=== PATIENT | male | born 1960 | race Caucasian/White ===

== ENCOUNTER 2019-05-14 21:03 | Inpatient (IN) | payer OTHER ==
[~2019-05-14] VITALS: Ht 165.1 cm; Wt 63.5 kg
[2019-05-14 23:15] VITALS: BP 141/80
--- NOTE | 2019-05-14 23:15 | NUR ---
MS/RN NOTES: NEW ADMISSION DIRECT ADMIT PATIENT CAME FROM [facility]. PATIENT IS A 58 YEAR OLD HOMELESS MAN , AMBULATORY, ALERT, ORIENTED X3, ABLE TO VERBALIZE NEEDS, RESPIRATIONS EVEN AND UNLABORED,WAS ADMITTED FOR WEAKNESS HX OF NECK CANCER. ADMITTED DUE TO GENERALIZED WEAKNESS, HYPONATREMIA AND USES METAMPHETAMINE AND BENZO. REPORTED HAD BM TODAY, BELONGINGS CHECK AND REFUSE SKIN CHECK. MD BURNS ADMITTING VITAL SIGNS CHECK,LEFT IV AC GAUGE, 20. NO REPORTED HOME MEDICATIONS. WILL FOLLOW UP WITH ,
[2019-05-14 23:30] VITALS: BP 141/80
[2019-05-15] MEDS ORDERED: ONDANSETRON HCL/PF 4 MG/2 ML VIAL IVP PRN (00:30)
[2019-05-15] MEDS ORDERED: IV NS 0.9% 1,000 ML IV PRN (00:30)
[2019-05-15] MEDS ORDERED: HYDROCODONE/APAP 5/325MG 1 EACH TABLET PO PRN (00:30)
[2019-05-15] MEDS ORDERED: Z GUARD REMEDY 2 OZ OINT TP PRN (00:30)
[2019-05-15] MEDS ORDERED: ACETAMINOPHEN 325 MG TABLET PO PRN (00:30)
[2019-05-15] MEDS ORDERED: ZOLPIDEM TARTRATE 5 MG TABLET PO PRN (00:30)
[2019-05-15] MEDS: IV NS 0.9% 1,000 ML IV PRN ×3 (01:33→20:56)
[2019-05-15] MEDS ORDERED: ENOXAPARIN SODIUM 30 MG/0.3 ML DISP.SYRIN SQ ONE (02:00)
--- NOTE | 2019-05-15 06:36 | NUR ---
320-2MS/RN NOTES PATIENT ABLE TO SLEEP FOR FEW HOURS, RESPIRATIONS EVEN AND UNLABORED. IV FLUIDS INFUSING ON LEFT AC. PATIENT INSTRUCTED TO CALL FORASSISTANCE. BED LOCKED, SAMMI LIGHTS PLACE. PROVIDED SNACKS AND FLUIDS. WILL ENDORSE TO AM RN FOR ELZBIETA.
[2019-05-15 06:46] LABS: CALCIUM, SERUM 8.1 mg/dL (8.5-10.1); CREATININE 1.1 mg/dL (0.6-1.3); MAGNESIUM 2.8 mg/dL (1.8-2.4); PHOSPHORUS 2.2 mg/dL (2.5-4.9); POTASSIUM 3.4 mmol/L (3.5-5.1)
[2019-05-15 06:58] LABS: BASOPHILS % (AUTO) 0.4 % (0.0-2.0); EOSINOPHILS % (AUTO) 0.6 % (0.0-6.0); HEMATOCRIT 40 % (39-51); HEMOGLOBIN 14.1 g/dL (13.5-17.5); LYMPHOCYTES # (AUTO) 2.1 /CMM (0.8-4.8); LYMPHOCYTES % (AUTO) 25.3 % (20.0-44.0); MEAN CORPUSCULAR HGB CONC 35 g/dl (31.0-36.0); MEAN CORPUSCULAR VOLUME 88 fL (80-96); MONOCYTES # (AUTO) 0.7 /CMM (0.1-1.30); MONOCYTES % (AUTO) 8.5 % (2.0-12.0); NEUTROPHILS # (AUTO) 5.5 /CMM (1.8-8.9); NEUTROPHILS % (AUTO) 65.2 % (43.0-81.0); PLATELET COUNT (AUTO) 176 /CMM (150-450); RED BLOOD CELL COUNT(AUTO) 4.58 MIL/uL (4.5-6.0); WHITE BLOOD COUNT (AUTO) 8.4 K/uL (4.3-11.0)
--- NOTE | 2019-05-15 07:08 | NUR ---
RN MS OPENING NOTES RECEIVED PT AWAKE IN BED IN NO ACUTE SIGNS OF DISTRESS. A/O X4. ABLE TO MAKE NEEDS KNOWN, DENIES PAIN OR ANY DISCOMFORTS AT THIS TIME. ON ROOM AIR, BREATHING EVEN AND UNLABORED. IV ACCESS ON LAC G#20 INTACT AND PATENT, IVF OF NS @ 125ML/HR INFUSING WELL, NO S/S OF INFILTRATIONS NOTED. SAFETY MEASURES IN PLACE. BED IN LOW LOCKED POSITION WITH SR UP X2. CALL LIGHT WITHIN REACH. WILL CONTINUE TO MONITOR PT ACCORDINGLY.
[2019-05-15 08:00] VITALS: BP 116/71
[2019-05-15] MEDS ORDERED: POTASSIUM CHLORIDE 20 MEQ TAB.PRT.SR PO ONE (08:00)
[2019-05-15 09:33] LABS: BILIRUBIN,URINE Negative (NEGATIVE); BLOOD, URINE Small Ery/uL (NEGATIVE); COLOR,URINE Yellow (YELLOW); KETONES,URINE Negative (NEGATIVE); LEUKOCYTE ESTERASE ,URINE Negative (NEGATIVE); NITRITE, URINE Negative (NEGATIVE); PROTEIN,URINE Trace mg/dl (NEGATIVE); UGLUCOSE Negative (NEGATIVE); UROBILINOGEN,URINE 0.2 EU/dL (0.2)
[2019-05-15 09:39] LABS: APPEARANCE,URINE Hazy (CLEAR)
[2019-05-15] MEDS: CALCIUM CARBONATE 500 MG TAB.CHEW PO PRN (09:43)
--- NOTE | 2019-05-15 09:46 | NUR ---
RN NOTES PT C/O ABDOMINAL GAS PAIN, CHLORINE PLANT OPERATOR TRETIAK AT BEDSIDE WITH ORDER TO GIVE PEPCID TAB 20 MG PO AND TUMS 500MF PO.
[2019-05-15 09:48] LABS: BACTERIA,URINE None seen /HPF (None Seen); SQUAMOUS EPITHELIAL CELL,UR Few /HPF (None Seen); WBC,URINE 0-2 /HPF (0-3)
[2019-05-15] MEDS ORDERED: FAMOTIDINE (20 MG) 20 MG TABLET PO ONE (10:00)
--- NOTE | 2019-05-15 11:25 | NUR ---
Social service consult requested by Dr. Anderson for homelessness. Pt. is a 58 year old male who was admitted to [facility] for hyponatremia. SW met with pt. bedside. Pt. is alert and oriented x 4. Pt. appears disheveled. Pt. is pleasant and cooperative with SW during the assessment. Pt. states he was residing in [place] at a campground but got into an argument with a tenant and left. Pt. has been homeless for the past few weeks. Pt. has been staying in the streets. SW offered pt. custodial placement, however pt. declined stating, " I need to go back to [place] to get my license." Pt. states he is getting serves at " [facility]" homeless custodial in [place]. Pt. denies any alcohol use but has history of methamphetamine use. Pt. stated, he cannot remember the last time he used methamphetamines. Pt. smokes approximately 10 cigarettes per day. Pt. receives SSI per month. Pt. denies any psychiatric history. Pt. denies suicidal and homicidal ideations at this time. SW to offer homeless resources upon discharge. Homeless Patient Waiver form to be signed by the pt. upon discharge. Pt. will need TAP card upon discharge. No other social service needs are requested at this time. SW is available, if needed.
--- NOTE | 2019-05-15 11:28 | NUR ---
RN NOTES PHYSICAL THERAPY EVALUATION DONE THIS MORNING, PT INDEPENDENT WITH BED MOBILITY, TRANSFER AND AMBULATION PER PT HILL. WILL CONTINUE TO MONITOR.
[2019-05-15] MEDS ORDERED: NEUTRA PHOS 1 POWD.PACKET PO ONE (11:30)
--- NOTE | 2019-05-15 13:09 | NUR ---
RN NOTES PATIENT SEEN BY BOX MAKER DANAE, PT STATED THAT HE'S HAVING CHEWING PROBLEM DUE TO HIS DENTURE. DANAE ASKED PT IF HE WANTS PUREED DIET AND HE SAID "YES". PT REMAINS OF REGULAR PUREED CONSISTENCY FOR DINNER. WILL CONTINUE TO MONITOR.
[2019-05-15 16:00] VITALS: BP 113/71
[2019-05-15] MEDS: ENSURE ENLIVE 237 ML LIQUID (VANILLA) PO SCH (17:07)
--- NOTE | 2019-05-15 18:40 | NUR ---
MS RN CLOSING NOTES PATIENT ASLEEP IN BED AT THIS TIME, EASILY AWAKENS. A/O X4. ABLE TO MAKE NEEDS KNOWN. NO ACUTE EVENTS NOTED THROUGHOUT THE DAY. PT ON ROOM AIR, TOLERATING WELL WITH NO SOB NOTED. IV ACCESS ON LAC G#20 INTACT AND PATENT, IVF OF NS @ 125ML/HR INFUSING WELL, NO S/S OF INFILTRATIONS NOTED. ALL NEEDS AND CARE ATTENDED WELL. SAFETY MEASURES KEPT IN PLACE. BED IN LOW LOCKED POSITION WITH SR UP X2. CALL LIGHT WITHIN REACH. WILL ENDORSE TO CAN SOLDERER NURSE FOR ELZBIETA.
--- NOTE | 2019-05-15 19:00 | NUR ---
RN MS OPENING NOTES RECEIVED PATIENT IN BED AWAKE ALERT AND ORIENTED X4. RESPIRATIONS EVEN AND UNLABORED WITH EQUAL RISE AND FALL OF CHEST, DENIES ANY PAIN OR DISCOMFORT AT THIS TIME. IV SITE TO LEFT AC#20 G INTACT AND PATENT, NO REDNESS, NO INFILTRATION PRESENT, IVF RUNNING ORDERED, URINAL AT BEDSIDE, ORIENTED TO STAFF AND CALL LIGHT AND KEPT WITHIN REACH, SAFETY PRECAUTIONS IN PLACE, LOW BED AND LOCKED, ALL NEEDS ATTENDED AT THIS TIME WILL CONTINUE TO MONITOR AND ATTEND TO NEEDS.
[2019-05-15 20:00] VITALS: BP 121/69
[2019-05-15] MEDS ORDERED: ENOXAPARIN SODIUM 30 MG/0.3 ML DISP.SYRIN SQ SCH (21:00)
[2019-05-16] MEDS: IV NS 0.9% 1,000 ML IV PRN (05:03)
--- NOTE | 2019-05-16 06:25 | NUR ---
RN MS CLOSING NOTES PATIENT IN BED SLEEPING BUT EASILY AROUSABLE , ALERT AND ORIENTED X4. RESPIRATIONS EVEN AND UNLABORED WITH EQUAL RISE AND FALL OF CHEST, DENIES ANY PAIN OR DISCOMFORT AT THIS TIME. IV SITE TO LEFT AC#20 G INTACT AND PATENT, NO REDNESS, NO INFILTRATION PRESENT, IVF RUNNING ORDERED, URINAL AT BEDSIDE, CALL LIGHT KEPT WITHIN REACH, SAFETY PRECAUTIONS IN PLACE, LOW BED AND LOCKED, ALL NEEDS ATTENDED AT THIS TIME , NO CHANGES NOTED THROUGHOUT SHIFT, WILL CONTINUE TO MONITOR AND ENDORSE TO NEXT SHIFT.
--- NOTE | 2019-05-16 07:15 | NUR ---
MS/RN - Assessment Patient awake, A/O x 4, no complaints overnight, denies pain at this time, no apparent distress noted, afebrile, stable on room air. IVF NS at 125 ml/hr infusing well on the LAC with no signs of infiltration. Labs reviewed, noted with low phosphorus, will notify Md. Skin is intact. Patient is ambulatory with steady gait. Patient educated on plan of care. Will continue with current medical management.
[2019-05-16 07:20] LABS: BASOPHILS % (AUTO) 0.7 % (0.0-2.0); EOSINOPHILS % (AUTO) 1.7 % (0.0-6.0); HEMATOCRIT 37 % (39-51); HEMOGLOBIN 12.8 g/dL (13.5-17.5); LYMPHOCYTES # (AUTO) 1.9 /CMM (0.8-4.8); MEAN CORPUSCULAR HGB CONC 35 g/dl (31.0-36.0); MEAN CORPUSCULAR VOLUME 90 fL (80-96); MONOCYTES # (AUTO) 0.5 /CMM (0.1-1.30); MONOCYTES % (AUTO) 9.1 % (2.0-12.0); NEUTROPHILS # (AUTO) 2.6 /CMM (1.8-8.9); NEUTROPHILS % (AUTO) 50.5 % (43.0-81.0); PLATELET COUNT (AUTO) 152 /CMM (150-450); RED BLOOD CELL COUNT(AUTO) 4.13 MIL/uL (4.5-6.0); WHITE BLOOD COUNT (AUTO) 5.1 K/uL (4.3-11.0)
[2019-05-16 07:46] LABS: ALBUMIN 2.7 g/dL (3.4-5.0); BILIRUBIN,TOTAL 0.9 mg/dL (0.2-1.0); CALCIUM, SERUM 8.2 mg/dL (8.5-10.1); CREATININE 0.6 mg/dL (0.6-1.3); MAGNESIUM 2.2 mg/dL (1.8-2.4); PHOSPHORUS 1.3 mg/dL (2.5-4.9); POTASSIUM 3.8 mmol/L (3.5-5.1)
[2019-05-16 07:51] LABS: THYROID STIMULATING HORMONE 8.265 uIU/mL (0.358-3.74)
[2019-05-16 08:09] VITALS: BP 106/67
[2019-05-16] MEDS: ENSURE ENLIVE 237 ML LIQUID (VANILLA) PO SCH ×2 (08:12→12:31)
[2019-05-16] MEDS ORDERED: NEUTRA PHOS 1 POWD.PACKET PO ONE ×2 (12:30→17:00)
[2019-05-16] MEDS: CALCIUM CARBONATE 500 MG TAB.CHEW PO PRN (12:34)
--- NOTE | 2019-05-16 13:25 | NUR ---
MS/RN - Discharge Note Patient is ambulatory with steady gait, alert and oriented x 4, denies chest pain, no c/o weakness, afebrile, on room air, discharged home in stable condition. Patient wanted to leave now because he said he needs to go to his AA meeting and his driving class. Patient was instructed to go to the nearest ER if developing chest pain, weakness, shortness of breath or any emergent symptoms. Homeless patient waiver form was signed but refused his discharge papers. Patient was provided with information on how to obtain medical services and community resources for his use. All belongings given. Patient refused photos to be taken, skin is intact. Patient arranged his own transportation from the hospital. Peripheral IV 20 gauge to the LAC removed, intact, no signs or symptoms of redness or swelling.
== END 2019-05-16 13:22 | disposition home or self-care (01) | DRG 422 ==
LOC: MED 23:13 → UNDODISIN 05-16 13:22
PROVIDERS: ADMIT Nurse Practitioner Acute Care; ATTEND Hospitalist
DX: E86.0 Dehydration (principal); E86.1 Hypovolemia; N17.0 Acute kidney failure with tubular necrosis; E87.1 Hypo-osmolality and hyponatremia; X30.XXXA Exposure to excessive natural heat, initial encounter; I10 Essential (primary) hypertension; Z59.0 Homelessness; Y92.9 Unspecified place or not applicable; E87.6 Hypokalemia; F17.210 Nicotine dependence, cigarettes, uncomplicated; Z91.19 Patient's noncompliance with other medical treatment and regimen
CPT/HCPCS: 36415; 80048-TC; 80053-TC; 80061-TC; 81000-TC; 82550-TC; 83540-TC; 83735-TC; 84100-TC; 84443-TC; 85025-TC; 87081-TC; 93307-TC; 97116-TC; 97530-TC; G0378; J1650; J7030